=== PATIENT | female | born 1960 | race Caucasian/White ===

== ENCOUNTER 2018-01-23 08:00 | Outpatient (CLI) | payer BC ==
[2018-01-23 12:53] LABS: EOSINOPHILS # (AUTO) 0.2 10^3/uL (0.0-0.7); HGB - HEMOGLOBIN 14.1 g/dL (12.0-16.0); LYMPHOCYTES # (AUTO) 0.6 10^3/uL (1.5-3.5); LYMPHOCYTES % (AUTO) 13.8 %; MEAN CORPUSCULAR HEMOGLOBIN 29.3 pg (27.0-31.0); MEAN CORPUSCULAR HGB CONC 33.5 g/dL (32.0-36.0); MEAN CORPUSCULAR VOLUME 87.4 fL (81.0-99.0); MONOCYTES # (AUTO) 0.4 10^3/uL (0.0-1.0); MONOCYTES % (AUTO) 8.2 %; NEUTROPHILS # (AUTO) 3.1 10^3/uL (1.5-6.6); PLT - PLATELET COUNT 207 10^3/uL (130-450); RED CELL DISTRIBUTION WIDTH 13.9 % (12.0-15.0); WHITE BLOOD COUNT 4.3 x10^3/uL (4.8-10.8)
[2018-01-23 13:31] LABS: THYROID STIMULATING HORMONE 1.46 uIU/mL (0.34-5.60)
[2018-01-23 13:41] LABS: FOLATE 4.92 ng/mL (5.90 - >24.8)
[2018-01-23 13:45] LABS: ALBUMIN/GLOBULIN RATIO 1.5 (1.0-2.2); ALKALINE PHOSPHATASE 63 IU/L (42-121); ALT ALANINE AMINOTRANSFERASE 18 IU/L (10-60); AST ASPARTATE AMINOTRANSFERASE 20 IU/L (10-42); BILIRUBIN,TOTAL 0.9 mg/dL (0.2-1.0); BUN - BLOOD UREA NITROGEN 19 mg/dL (6-20); CARBON DIOXIDE - CO2 26 mmol/L (21-32); CHLORIDE 109 mmol/L (101-111); CHOL/HDL RATIO 3.1 (<4.4); CHOLESTEROL 191 mg/dL; CREATININE 0.8 mg/dL (0.4-1.0); GFR - MDRD 73 (>89); GLUCOSE 107 mg/dL (70-100); HDL CHOLESTEROL 62 mg/dL; LDL CHOLESTEROL,CALCULATED 117 mg/dL; LDL/HDL RATIO 1.9 (<4.4); SODIUM 142 mmol/L (135-145); TOTAL PROTEIN 6.6 g/dL (6.7-8.2); VLDL CHOLESTEROL 12 mg/dL
== END 2018-01-23 08:01 | disposition home or self-care (01) ==
LOC: LAB.N 08:00
PROVIDERS: ATTEND Nurse Practitioner
DX: R03.0 Elevated blood-pressure reading, without diagnosis of hypertension (principal); E55.9 Vitamin D deficiency, unspecified; E53.8 Deficiency of other specified B group vitamins; E03.9 Hypothyroidism, unspecified
CPT/HCPCS: 36415; 80053; 80061; 82306; 82607; 82746; 83721; 84443; 85025

== ENCOUNTER 2018-01-31 08:29 | Outpatient (CLI) | payer BC ==
--- NOTE | 2018-02-08 08:57 | Mammography Report ---
Procedure Date: 01/31/2018 Accession Number: [id number] / [id number] Procedure: MGN - Screening Mammo Dig Bilat CPT Code: FULL RESULT: EXAM: Screening Mammo Dig Bilat DATE: 01/31/2018 8:56 AM CLINICAL HISTORY: Routine screening TECHNIQUE: Bilateral CC and MLO views were obtained. COMPARISON: 01/12/2017 and 04/22/2011 FINDINGS: There are scattered fibroglandular densities. There is no significant interval change. No suspicious masses, clustered microcalcifications, or regions of architectural distortion are identified. IMPRESSION: Negative examination RECOMMENDATION: Routine annual screening unless otherwise clinically indicated. BIRADS CATEGORY 1: Negative STANDARD QUALIFYING STATEMENTS: 1. This examination was reviewed with the aid of Computer-Aided Detection (CAD). 2. A negative or benign imaging report should not delay biopsy if clinically suspicious findings are present. Consider surgical consultation if warrented. More than 5% of cancers are not identified by imaging. 3. Dense breasts may obscure an underlying neoplasm.
== END 2018-01-31 08:30 | disposition home or self-care (01) ==
LOC: DI.N 08:29
PROVIDERS: ATTEND Nurse Practitioner
DX: Z12.31 Encounter for screening mammogram for malignant neoplasm of breast (principal)
CPT/HCPCS: 77067

== ENCOUNTER 2018-03-08 14:25 | Outpatient (CLI) | payer BC | END 2018-03-08 14:26 | disposition home or self-care (01) | LOC: RT 14:25 | PROVIDERS: ATTEND Internal Medicine Gastroenterology | DX: R03.0 Elevated blood-pressure reading, without diagnosis of hypertension (principal); Z80.0 Family history of malignant neoplasm of digestive organs; E66.9 Obesity, unspecified; K58.9 Irritable bowel syndrome, unspecified | CPT/HCPCS: 93005 ==

== ENCOUNTER 2018-03-15 10:52 | Day surgery (SDC) | payer BC ==
[2018-03-15] MEDS ORDERED: LACTATED RINGERS 1,000 ML IV ONE (11:38)
[2018-03-15] MEDS ORDERED: fentaNYL 250 MCG/5 ML VIAL IVP ONE (12:31)
[2018-03-15] MEDS ORDERED: MIDAZOLAM 2 MG/2 ML VIAL IVP ONE (12:31)
[2018-03-15 14:08] VITALS: BP 130/72
== END 2018-03-15 10:53 | disposition home or self-care (01) ==
LOC: SDS 10:52
PROVIDERS: ATTEND Internal Medicine Gastroenterology
PROC: 0DBE8ZX Excision of Large Intestine, Via Natural or Artificial Opening Endoscopic, Diagnostic (ICD-10-PCS; principal; 2018-03-15 13:00)
DX: K50.90 Crohn's disease, unspecified, without complications (principal); K58.0 Irritable bowel syndrome with diarrhea; K56.699 Other intestinal obstruction unspecified as to partial versus complete obstruction; Z80.0 Family history of malignant neoplasm of digestive organs; Z87.891 Personal history of nicotine dependence; E66.9 Obesity, unspecified; Z68.38 Body mass index [BMI] 38.0-38.9, adult; E03.9 Hypothyroidism, unspecified
CPT/HCPCS: 45380; J3010; J7120

== ENCOUNTER 2018-03-29 10:39 | Outpatient (CLI) | payer BC ==
[2018-03-29] MEDS ORDERED: IOPAMIDOL-300 100 ML VIAL ONE (10:48)
[2018-03-29] MEDS ORDERED: IOPAMIDOL-300 50 ML VIAL ONE (10:48)
--- NOTE | 2018-03-29 15:30 | CT Report ---
Reason: CHRONS DISEASE Procedure Date: 03/29/2018 Accession Number: [id number] / [id number] Procedure: CT - Abdomen/Pelvis W/ CPT Code: FULL RESULT: EXAM: CT ABDOMEN AND PELVIS EXAM DATE: 03/29/2018 12:34 PM. CLINICAL HISTORY: Crohn's disease. COMPARISONS: None. TECHNIQUE: Routine helical CT imaging was performed through the abdomen and pelvis. IV contrast: Isovue-300 100 mL. Enteric contrast: No. Reconstructions: Coronal and sagittal. In accordance with CT protocol optimization, one or more of the following dose reduction techniques were utilized for this exam: automated exposure control, adjustment of mA and/or KV based on patient size, or use of iterative reconstructive technique. FINDINGS: Lung Bases: Unremarkable. Liver: Liver contains a 2.4 x 2.9 cm hypodense hepatic mass which is incompletely characterized. Gallbladder/Bile Ducts: Unremarkable. Spleen: Normal. Pancreas: Normal. Adrenal Glands: Normal. Kidneys: Normal. No masses or hydronephrosis. Peritoneal Cavity/Bowel: There is segmental luminal narrowing of the terminal ileum with wall thickening and interloop adhesions as well as proliferation of fat involving approximately the 20 terminal centimeters of the ileum. Similarly, the descending and sigmoid colon demonstrate irregular luminal narrowing and wall thickening consistent with chronic changes. There is no definite active inflammation though the descending colon appears indurated. No free fluid, free air or adenopathy. No masses. The appendix is not visualized. Lap band is noted. Pelvic Organs: Normal. The bladder and visualized pelvic organs are within normal limits. Vasculature: No aneurysms or other significant abnormality. Bones: No significant abnormality. Other: None. IMPRESSION: Chronic sequela of inflammatory bowel disease in the terminal ileum and less pronounced in the descending and sigmoid colon. Radiologic determination of active disease is best made by MRI enterography. [facility]
[2018-03-29] MEDS ORDERED: IOPAMIDOL-300 50 ML VIAL PO ONE (16:46)
[2018-03-29] MEDS ORDERED: IOPAMIDOL-300 100 ML VIAL IVP ONE (16:46)
== END 2018-03-29 10:40 | disposition home or self-care (01) ==
LOC: DI 10:39
PROVIDERS: ATTEND Internal Medicine Gastroenterology
DX: K50.00 Crohn's disease of small intestine without complications (principal)
CPT/HCPCS: 74177; Q9967

== ENCOUNTER 2018-04-12 16:47 | Outpatient (CLI) | payer BC ==
--- NOTE | 2018-04-13 09:20 | Ultrasound Report ---
Reason: HEPATIC MASS Procedure Date: 04/12/2018 Accession Number: [id number] / [id number] Procedure: US - Abdomen Limited CPT Code: FULL RESULT: EXAM: ABDOMEN ULTRASOUND LIMITED, RUQ EXAM DATE: 04/12/2018 04:57 PM. CLINICAL HISTORY: Hepatic mass. COMPARISON: No ultrasound comparison. CT abdomen and pelvis with contrast 03/29/2018. TECHNIQUE: Real-time scanning was performed with static images obtained. FINDINGS: Liver: Diffuse increase echogenicity is consistent with fatty infiltration. 2.5 x 2.2 x 1.7 cm homogeneous hyperechoic mass within the posteromedial right hepatic lobe corresponds with a hypodense mass demonstrated on the CT exam measuring up to 2.6 cm in the axial plane, by my measurements. Within the inferior aspect of the right hepatic lobe there is a homogeneous hyperechoic 1.4 x 1.3 x 1.1 cm mass which corresponds with a focal hypodensity demonstrated on the prior CT exam. These are a typical appearance for hemangiomata. Liver size is normal, 15.2 cm. Main portal vein flow: Hepatopetal. Gallbladder: Normal. No stones, wall thickening, or sonographic Caputo's sign. Biliary System: CBD measures 3.6 mm. No intrahepatic or extrahepatic ductal dilatation. Other: The visualized right kidney is unremarkable, length 9.4 cm. No free fluid. IMPRESSION: 1. 2 right hepatic lobe hyperechoic masses measuring up to 2.5 and 1.4 cm correspond with 2 hypodense masses on the recent CT exam. Incidental homogeneous hyperechoic liver lesions discovered in patients without known malignancy or liver disease are almost always hepatic hemangiomas. 2. Diffuse fatty infiltration of the liver. [facility]
== END 2018-04-12 16:48 | disposition home or self-care (01) ==
LOC: DI 16:47
PROVIDERS: ATTEND Internal Medicine Gastroenterology
DX: R16.0 Hepatomegaly, not elsewhere classified (principal); K76.0 Fatty (change of) liver, not elsewhere classified
CPT/HCPCS: 76705

== ENCOUNTER 2018-06-01 08:00 | Outpatient (CLI) | payer BC ==
[2018-06-02 12:36] LABS: HEPATITIS C ANTIBODY NON-REACTIVE (NON-REACTIVE)
== END 2018-06-01 23:59 | disposition home or self-care (01) ==
LOC: LAB.N 08:00
PROVIDERS: ATTEND Nurse Practitioner
DX: Z11.59 Encounter for screening for other viral diseases (principal)
CPT/HCPCS: 36415; 86803

== ENCOUNTER 2018-07-26 08:00 | Outpatient (CLI) | payer BC ==
[2018-07-26 19:20] LABS: THYROID STIMULATING HORMONE 1.42 uIU/mL (0.34-5.60)
[2018-07-26 19:22] LABS: FREE T4 (FREE THYROXINE) 1.13 ng/dL (0.58-1.64)
== END 2018-07-26 23:59 | disposition home or self-care (01) ==
LOC: LAB.N 08:00
PROVIDERS: ATTEND Internal Medicine Endocrinology, Diabetes & Metabolism
DX: E03.9 Hypothyroidism, unspecified (principal)
CPT/HCPCS: 36415; 84439; 84443; 84481

== ENCOUNTER 2018-10-05 08:00 | Outpatient (CLI) | payer BC ==
[2018-10-05 19:46] LABS: THYROID STIMULATING HORMONE 1.3 uIU/mL (0.34-5.60)
[2018-10-05 19:48] LABS: FREE T4 (FREE THYROXINE) 0.76 ng/dL (0.58-1.64)
== END 2018-10-05 23:59 | disposition home or self-care (01) ==
LOC: LAB.N 08:00
PROVIDERS: ATTEND Internal Medicine Endocrinology, Diabetes & Metabolism
DX: E03.8 Other specified hypothyroidism (principal)
CPT/HCPCS: 36415; 84439; 84443; 84481

== ENCOUNTER 2021-11-23 08:00 | Outpatient (CLI) | payer BC ==
--- NOTE | 2021-11-24 10:38 | XRAY Report ---
PROCEDURE: Chest 2 View X-Ray INDICATIONS: DYSPNEA TECHNIQUE: 2 view(s) of the chest. COMPARISON: None. FINDINGS: Surgical changes and devices: There is a left Port-A-Cath, the tip of which is projected over the cav oatrial junction. Surgical clips are projected over the right axilla. Lungs and pleura: No pleural effusions or pneumothorax. There is diffuse interstitial prominence. Mediastinum: Mediastinal contours are normal. Heart size is normal. Bones and chest wall: No suspicious bony abnormalities. Soft tissues appear unremarkable. IMPRESSION: Diffuse interstitial prominence suggesting pulmonary edema. No focal airspace consolidat ion or pleural effusions. Reviewed by: Amanda Bain MD on 11/23/2021 5:40 PM PDT Approved by: Amanda Bain MD on 11/23/2021 5:40 PM PDT Station ID: [id number]
== END 2021-11-23 23:59 | disposition home or self-care (01) ==
LOC: DI.S 08:00
DX: R06.00 Dyspnea, unspecified (principal); J84.9 Interstitial pulmonary disease, unspecified

== ENCOUNTER 2022-08-01 13:19 | Outpatient (CLI) | payer OTHER ==
[2022-08-01 20:45] LABS: THYROID STIMULATING HORMONE 0.66 uIU/mL (0.34-5.60)
[2022-08-01 20:46] LABS: FREE T3 3.06 pg/mL (2.5-3.9)
[2022-08-01 20:47] LABS: FREE T4 (FREE THYROXINE) 0.95 ng/dL (0.58-1.64)
== END 2022-08-01 13:20 | disposition home or self-care (01) ==
LOC: LAB.S 13:19
PROVIDERS: ATTEND Internal Medicine Endocrinology, Diabetes & Metabolism
DX: E89.0 Postprocedural hypothyroidism (principal)
CPT/HCPCS: 36415; 84439; 84443; 84481

== ENCOUNTER 2022-08-19 08:49 | Outpatient (CLI) | payer OTHER ==
[2022-08-19 14:43] LABS: BASOPHILS # (AUTO) 0.1 10^3/uL (0.0-0.1); BASOPHILS % (AUTO) 1.1 %; EOSINOPHILS # (AUTO) 0.2 10^3/uL (0.0-0.7); EOSINOPHILS % (AUTO) 4.2 %; HGB - HEMOGLOBIN 13.9 g/dL (12.0-16.0); LYMPHOCYTES # (AUTO) 0.7 10^3/uL (1.5-3.5); LYMPHOCYTES % (AUTO) 12.8 %; MEAN CORPUSCULAR HEMOGLOBIN 28.2 pg (27.0-31.0); MEAN CORPUSCULAR HGB CONC 30.9 g/dL (32.0-36.0); MEAN CORPUSCULAR VOLUME 91.3 fL (81.0-99.0); MEAN PLATELET VOLUME 10.5 fL (7.9-10.8); MONOCYTES # (AUTO) 0.4 10^3/uL (0.0-1.0); MONOCYTES % (AUTO) 6.6 %; NEUTROPHILS # (AUTO) 4.1 10^3/uL (1.5-6.6); NEUTROPHILS % (AUTO) 75.1 %; PLT - PLATELET COUNT 239 10^3/uL (130-450); RED BLOOD COUNT 4.93 10^6/uL (4.20-5.40); RED CELL DISTRIBUTION WIDTH 14.1 % (12.0-15.0); WHITE BLOOD COUNT 5.5 x10^3/uL (4.8-10.8)
[2022-08-19 15:17] LABS: THYROID STIMULATING HORMONE 1.75 uIU/mL (0.34-5.60)
[2022-08-19 15:25] LABS: ALBUMIN 3.8 g/dL (3.2-5.5); ALBUMIN/GLOBULIN RATIO 1.2 (1.0-2.2); ALKALINE PHOSPHATASE 62 IU/L (42-121); ALT ALANINE AMINOTRANSFERASE 25 IU/L (10-60); AST ASPARTATE AMINOTRANSFERASE 19 IU/L (10-42); BUN - BLOOD UREA NITROGEN 20 mg/dL (6-20); CALCIUM 9.1 mg/dL (8.5-10.3); CARBON DIOXIDE - CO2 30 mmol/L (21-32); CHLORIDE 107 mmol/L (101-111); CHOL/HDL RATIO 3.2 (<4.4); CHOLESTEROL 181 mg/dL; CREATININE 0.8 mg/dL (0.4-1.0); GFR - MDRD 72 (>89); GLUCOSE 139 mg/dL (70-100); HDL CHOLESTEROL 57 mg/dL; LDL CHOLESTEROL,CALCULATED 116 mg/dL; LDL CHOLESTEROL,DIRECT 116 mg/dL; POTASSIUM 4.3 mmol/L (3.5-5.0); SODIUM 143 mmol/L (135-145); TOTAL PROTEIN 6.9 g/dL (6.7-8.2); TRIGLYCERIDES 42 mg/dL; VLDL CHOLESTEROL 8 mg/dL
== END 2022-08-19 08:50 | disposition home or self-care (01) ==
LOC: LAB.S 08:49
PROVIDERS: ATTEND Internal Medicine
DX: E78.5 Hyperlipidemia, unspecified (principal); I10 Essential (primary) hypertension
CPT/HCPCS: 36415; 80053; 80061; 83721; 84443; 85025

== ENCOUNTER 2022-11-21 10:58 | Outpatient (CLI) | payer OTHER ==
[2022-11-21 16:04] LABS: THYROID STIMULATING HORMONE 1.08 uIU/mL (0.34-5.60)
[2022-11-21 16:06] LABS: FREE T4 (FREE THYROXINE) 1.18 ng/dL (0.58-1.64)
== END 2022-11-21 10:59 | disposition home or self-care (01) ==
LOC: LAB.S 10:58
PROVIDERS: ATTEND Student in an Organized Health Care Education/Training Program
DX: E89.0 Postprocedural hypothyroidism (principal)
CPT/HCPCS: 36415; 84439; 84443

== ENCOUNTER 2023-08-10 07:25 | Outpatient (CLI) | payer OTHER ==
[2023-08-10 15:09] LABS: BASOPHILS # (AUTO) 0.1 10^3/uL (0.0-0.1); BASOPHILS % (AUTO) 1.1 %; EOSINOPHILS # (AUTO) 0.3 10^3/uL (0.0-0.7); EOSINOPHILS % (AUTO) 5.2 %; HCT - HEMATOCRIT 43.7 % (37.0-47.0); HGB - HEMOGLOBIN 13.5 g/dL (12.0-16.0); LYMPHOCYTES # (AUTO) 0.9 10^3/uL (1.5-3.5); LYMPHOCYTES % (AUTO) 14.9 %; MEAN CORPUSCULAR HEMOGLOBIN 28.6 pg (27.0-31.0); MEAN CORPUSCULAR HGB CONC 30.9 g/dL (32.0-36.0); MEAN CORPUSCULAR VOLUME 92.6 fL (81.0-99.0); MEAN PLATELET VOLUME 10.8 fL (7.9-10.8); MONOCYTES # (AUTO) 0.5 10^3/uL (0.0-1.0); MONOCYTES % (AUTO) 7.5 %; NEUTROPHILS # (AUTO) 4.3 10^3/uL (1.5-6.6); NEUTROPHILS % (AUTO) 70.8 %; PLT - PLATELET COUNT 247 10^3/uL (130-450); RED BLOOD COUNT 4.72 10^6/uL (4.20-5.40); RED CELL DISTRIBUTION WIDTH 14.4 % (12.0-15.0); WHITE BLOOD COUNT 6.1 x10^3/uL (4.8-10.8)
[2023-08-10 15:56] LABS: ALBUMIN/GLOBULIN RATIO 1.5 (1.0-2.2); ALKALINE PHOSPHATASE 62 IU/L (42-121); ALT ALANINE AMINOTRANSFERASE 30 IU/L (10-60); AST ASPARTATE AMINOTRANSFERASE 19 IU/L (10-42); BILIRUBIN,TOTAL 0.8 mg/dL (0.2-1.0); BUN - BLOOD UREA NITROGEN 17 mg/dL (6-20); CALCIUM 9.1 mg/dL (8.5-10.3); CARBON DIOXIDE - CO2 27 mmol/L (21-32); CHLORIDE 104 mmol/L (101-111); CHOL/HDL RATIO 3.2 (<4.4); CHOLESTEROL 180 mg/dL; CREATININE 0.7 mg/dL (0.6-1.3); GFR - MDRD 84 (>89); GLUCOSE 145 mg/dL (74-104); HDL CHOLESTEROL 57 mg/dL; LDL CHOLESTEROL,CALCULATED 101 mg/dL; LDL CHOLESTEROL,DIRECT 106 mg/dL (75-193); LDL/HDL RATIO 1.8 (<4.4); SODIUM 139 mmol/L (135-145); TOTAL PROTEIN 6.7 g/dL (6.4-8.9); TRIGLYCERIDES 108 mg/dL (48-352); VLDL CHOLESTEROL 22 mg/dL
[2023-08-10 16:00] LABS: THYROID STIMULATING HORMONE 1.17 uIU/mL (0.34-5.60)
== END 2023-08-10 07:26 | disposition home or self-care (01) ==
LOC: LAB.S 07:25
PROVIDERS: ATTEND Internal Medicine
DX: I10 Essential (primary) hypertension (principal); E78.5 Hyperlipidemia, unspecified
CPT/HCPCS: 36415; 80053; 80061; 83721; 84443; 85025

== ENCOUNTER 2024-01-29 10:24 | Outpatient (CLI) | payer OTHER ==
--- NOTE | 2024-01-29 18:30 | XRAY Report ---
PROCEDURE: Foot 3+V RT (Weight Bearing) INDICATIONS: RIGHT FOOT PAIN TECHNIQUE: 3 views of the foot were acquired. COMPARISON: None. FINDINGS: Bones: No acute fractures or dislocations. No suspicious bony lesions. Mild to moderate 1st metata rsophalangeal osteoarthrosis. Scattered degenerative changes are seen at the interphalangeal joints o f the toes. Posterior calcaneal enthesophytes. Soft tissues: No suspicious soft tissue calcifications. 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 Mild degenerative changes in the toes. 2.Calcaneal enthesopathy. Reviewed by: Grzegorz Mercedes MD on 01/29/2024 6:29 PM PDT Approved by: Grzegorz Mercedes MD on 01/29/2024 6:29 PM PDT Station ID: [id number]
== END 2024-01-29 10:25 | disposition home or self-care (01) ==
LOC: DI 10:24
PROVIDERS: ATTEND Podiatrist
DX: M19.071 Primary osteoarthritis, right ankle and foot (principal); M77.31 Calcaneal spur, right foot